=== PATIENT | female | born 1995 | race Caucasian/White ===

== ENCOUNTER 2017-03-29 15:00 | Emergency (ER) | payer SELFPAY ==
[~2017-03-29] VITALS: Ht 160 cm; Wt 66.0 kg
[~2017-03-29 15:00] MED LIST: KEFLEX500 MG PO; MOTRIN600 MG PO; MOTRIN800 MG PO; NOHOMEMEDS
[2017-03-29] MEDS ORDERED: CIPRO500 MG PO (16:07)
[2017-03-29] MEDS ORDERED: BACTRIM,SEPT1 TABLET PO (16:07)
[2017-03-29] MEDS ORDERED: INDOCIN25 MG PO (16:07)
[2017-03-29 16:18] VITALS: BP 120/70
== END 2017-03-29 16:19 | disposition home or self-care (01) ==
LOC: EME 15:00
DX: L60.0 Ingrowing nail (principal); L03.032 Cellulitis of left toe
CPT/HCPCS: 99281; 99283

== ENCOUNTER 2017-05-11 17:12 | Emergency (ER) | payer OTHER ==
[~2017-05-11] VITALS: Ht 162.6 cm; Wt 65.3 kg
[~2017-05-11 17:12] MED LIST changes: +BACTRIM,SEPT1 TABLET PO; +CIPRO500 MG PO; +INDOCIN25 MG PO
[2017-05-11 19:57] LABS: ADD MIUA? YES; BILIRUBIN NEGATIVE; BLOOD NEGATIVE; COLOR YELLOW ((YELLOW)); GLUCOSE (STRIP) NEGATIVE; KETONES NEGATIVE; LEUKOCYTES NEGATIVE; NITRITE NEGATIVE; PROTEIN (STRIP) NEGATIVE; SPECIFIC GRAVITY 1.027 (1.000-1.030)
[2017-05-11 20:07] LABS: INTERNAL CONTROL VALID? YES
[2017-05-11 20:29] LABS: BACTERIA RARE /HPF; EPITHELIAL CELLS RARE /HPF; MUCUS TRACE /LPF; RED BLOOD CELLS 0-5 /HPF (0-5); UCUL ADDED? NO; WHITE BLOOD CELLS 0-5 /HPF (0-5)
[2017-05-11 21:21] VITALS: BP 114/62
== END 2017-05-11 21:22 | disposition home or self-care (01) ==
LOC: EME 17:12
DX: N93.9 Abnormal uterine and vaginal bleeding, unspecified (principal); Z87.891 Personal history of nicotine dependence
CPT/HCPCS: 81003; 84703; 99281; 99283